=== PATIENT | female | born 1965 | race Native Hawaiian/Other Pacific Islander ===

== ENCOUNTER 2018-11-19 17:56 | Outpatient (CLI) | payer OTHER | END 2018-11-19 23:57 | disposition home or self-care (01) | LOC: LABW 17:56 | DX: R68.82 Decreased libido (principal); N95.8 Other specified menopausal and perimenopausal disorders | CPT/HCPCS: 36415; 82670; 84144; 84402; 84481 ==

== ENCOUNTER 2023-06-27 10:34 | Outpatient (CLI) | payer OTHER | END 2023-06-27 19:28 | disposition home or self-care (01) | LOC: LABW 10:34 | PROVIDERS: ATTEND Nurse Practitioner | DX: E78.2 Mixed hyperlipidemia (principal); I25.10 Atherosclerotic heart disease of native coronary artery without angina pectoris | CPT/HCPCS: 36415; 80061; 80076 ==